=== PATIENT | female | born 1990 | race American Indian/Alaskan Native ===

== ENCOUNTER 2019-06-06 15:51 | Emergency (ER) | payer MEDICAID, OTHER ==
--- NOTE | 2019-06-06 16:08 | Event Note ---
ED Screening Note Date of service: 06/06/19 Time: 16:05 ED Screening Note: This is a 28 y.o. F. that presents to the ER with pelvic pain and vaginal discharge x 2 days. LMP 05/20/2019 This initial assessment/diagnostic orders/clinical plan/treatment(s) is/are subject to change based on patients health status, clinical progression and re- assessment by fellow clinical providers in the ED. Further treatment and workup at subsequent clinical providers discretion. Patient/guardian urged not to elope from the ED as their condition may be serious if not clinically assessed and managed. Initial orders include: UA, urine , wet prep, and GC Pelvic exam
[2019-06-06 17:27] LABS: Bacteria,Urine 1+ /HPF (Negative); Bilirubin,Urine NEG (Negative); Blood,Urine SM (Negative); Color,Urine Amber (Yellow); Mucus,Urine 3+ /HPF; Sperm,Urine FEW /HPF (NP)
[2019-06-06 17:30] LABS: HCG Qualitative,Urine Negative (Negative)
--- NOTE | 2019-06-06 17:55 | Emergency Department Report ---
ED Dysuria HPI - HPI Chief Complaint: Abdominal Pain Stated Complaint: ABD PAIN/DISCHARGE Time Seen by Provider: 06/06/19 16:04 Duration: 2 Days Location of Discomfort: Suprapubic Severity: Mild Symptoms: Dysuria: Yes, Frequency: Yes, Suprapubic Pain: No, Flank Pain: No, Fever: No, Hematuria: No, Abdominal Pain: No, Previous UTI's: Yes ED Review of Systems ROS: Stated complaint: ABD PAIN/DISCHARGE Other details as noted in HPI Comment: All other systems reviewed and negative ED Past Medical Hx - Past Medical History Previous Medical History?: No Hx Hypertension: No Hx Diabetes: No Hx Deep Vein Thrombosis: No Hx Renal Disease: No Hx Sickle Cell Disease: No Hx Seizures: No Hx Asthma: No Hx HIV: No - Surgical History Past Surgical History?: Yes Additional Surgical History: X 1 - Family History Family history: no significant - Social History Smoking Status: Never Smoker Substance Use Type: None - Medications Home Medications: Home Medications Medication Instructions Recorded Confirmed Last Taken Type Sulfamethoxazole/Trimethoprim 1 each PO BID #10 tablet 06/06/19 Unknown Rx [Bactrim DS TAB] Dysuria Exam - Exam General: Vital signs noted. No distress. Alert and acting appropriately. Exam: Yes Moist Mucous Membranes, No CVA Tenderness, No Abdominal Tenderness, No Rigidity or Guarding Labs: Lab Results 06/06/19 Range/Units 16:56 Urine Color Monie (Yellow) Urine Turbidity Slightly-cloudy (Clear) Urine pH 5.0 (5.0-7.0) Ur Specific [place] 1.031 H (1.003-1.030) Urine Protein 30 mg/dl (Negative) mg/dL Urine Glucose (UA) Neg (Negative) mg/dL Urine Ketones 20 (Negative) mg/dL Urine Blood Sm (Negative) Urine Nitrite Neg (Negative) Urine Bilirubin Neg (Negative) Urine Urobilinogen 4.0 (<2.0) mg/dL Ur Leukocyte Esterase Mod (Negative) Urine WBC (Auto) 4.0 (0.0-6.0) /HPF Urine RBC (Auto) 9.0 (0.0-6.0) /HPF U Epithel Cells (Auto) 13.0 (0-13.0) /HPF Urine Bacteria (Auto) 1+ (Negative) /HPF Urine Mucus 3+ /HPF Urine Yeast (Budding) Few /HPF Urine Sperm Few ([employer]) /HPF Urine HCG, Qual Negative (Negative) ED Course Vital Signs 06/06/19 16:05 Temperature 98.0 F Pulse Rate 95 H Respiratory 16 Rate Blood Pressure 147/83 O2 Sat by Pulse 100 Oximetry ED Medical Decision Making - Medical Decision Making Labs 06/06/19 16:56 Urine Color Monie Urine Turbidity Slightly-cloudy Urine pH 5.0 Ur Specific [place] 1.031 H Urine Protein 30 mg/dl Urine Glucose (UA) Neg Urine Ketones 20 Urine Blood Sm Urine Nitrite Neg Urine Bilirubin Neg Urine Urobilinogen 4.0 Ur Leukocyte Esterase Mod Urine WBC (Auto) 4.0 Urine RBC (Auto) 9.0 U Epithel Cells (Auto) 13.0 Urine Bacteria (Auto) 1+ Urine Mucus 3+ Urine Yeast (Budding) Few Urine Sperm Few Urine HCG, Qual Negative Vital Signs 06/06/19 16:05 Temperature 98.0 F Pulse Rate 95 H Respiratory 16 Rate Blood Pressure 147/83 O2 Sat by Pulse 100 Oximetry Critical care attestation.: If time is entered above; I have spent that time in minutes in the direct care of this critically ill patient, excluding procedure time. ED Disposition Clinical Impression: UTI (urinary tract infection) Disposition: DC-01 TO HOME OR SELFCARE Is pt being admited?: No Does the pt Need Aspirin: No Condition: Stable Instructions: Urinary Tract Infection in Women (ED) Additional Instructions: URINATE AFTER SEX MED ORDERED FOLLOW UP WITH PCP NEXT WEEK TO BE SURE YOU ARE GETTING BETTER HYDRATE WELL WITH WATER Referrals: LOLLY GAMEZ MD [Staff Physician] - 3-5 Days Time of Disposition: 18:10
[2019-06-06] MEDS ORDERED: NACL 0.9% 1000 ML 1,000 ML IV ONE (18:04)
[2019-06-06] MEDS ORDERED: ROCEPHIN/NS 1 GM/50 ML 1 GM/50 ML BAG IV ONE (18:04)
[2019-06-06 19:24] VITALS: BP 133/74
== END 2019-06-06 19:45 | disposition home or self-care (01) ==
LOC: ED 15:51
DX: N39.0 Urinary tract infection, site not specified (principal); Z88.6 Allergy status to analgesic agent; Z88.1 Allergy status to other antibiotic agents
CPT/HCPCS: 81001; 81025; 96365; 99284; J0696; J7030

== ENCOUNTER 2019-09-11 09:50 | Emergency (ER) | payer MEDICAID ==
[2019-09-11 09:58] VITALS: BP 144/89
--- NOTE | 2019-09-11 11:18 | Emergency Department Report ---
ED ENT HPI - General Chief complaint: Upper Respiratory Infection Stated complaint: FLU LIKE SYM/RT SIDE TOOTHACHE Time Seen by Provider: 09/11/19 10:55 Source: patient Mode of arrival: Ambulatory Limitations: No Limitations - History of Present Illness Initial comments: 28-year-old -[place]ub[place] female patient complains of cough, congestion, and body aches for 2 days and sore throat yesterday. She rates her sore throat as a 10/10 in severity. She admits to green mucus with cough. She states she feels diagnosis and admits to exposure to the flu at work. She denies any chest pain or shortness of breath. Patient also complains of mild right lower dental pain for the past few days. She states she has been getting intermittent wisdom tooth pain in the area for months. Denies any swelling of the face Worsens with: swallowing Associated Symptoms: cough, pain with swallowing, sore throat - Related Data Previous Rx's Medication Instructions Recorded Last Taken Type Sulfamethoxazole/Trimethoprim 1 each PO BID #10 tablet 06/06/19 Unknown Rx [Bactrim DS TAB] Benzonatate 200 mg PO TID PRN #30 capsule 09/11/19 Unknown Rx Ibuprofen [Motrin 800 MG tab] 800 mg PO Q8HR PRN #21 tablet 09/11/19 Unknown Rx Allergies Allergy/AdvReac Type Severity Reaction Status Date / Time acetaminophen [From Percocet] Allergy Hives Verified 07/03/13 19:41 oxycodone HCl [From Percocet] Allergy Hives Verified 07/03/13 19:41 ED Dental HPI - General Chief complaint: Upper Respiratory Infection Stated complaint: FLU LIKE SYM/RT SIDE TOOTHACHE Time Seen by Provider: 09/11/19 10:55 Source: patient Mode of arrival: Ambulatory Limitations: No Limitations - Related Data Previous Rx's Medication Instructions Recorded Last Taken Type Sulfamethoxazole/Trimethoprim 1 each PO BID #10 tablet 06/06/19 Unknown Rx [Bactrim DS TAB] Benzonatate 200 mg PO TID PRN #30 capsule 09/11/19 Unknown Rx Ibuprofen [Motrin 800 MG tab] 800 mg PO Q8HR PRN #21 tablet 09/11/19 Unknown Rx Allergies Allergy/AdvReac Type Severity Reaction Status Date / Time acetaminophen [From Percocet] Allergy Hives Verified 07/03/13 19:41 oxycodone HCl [From Percocet] Allergy Hives Verified 07/03/13 19:41 ED Review of Systems ROS: Stated complaint: FLU LIKE SYM/RT SIDE TOOTHACHE Other details as noted in HPI Comment: All other systems reviewed and negative Constitutional: chills, malaise, weakness Respiratory: cough. denies: shortness of breath Cardiovascular: denies: chest pain Gastrointestinal: nausea. denies: abdominal pain, vomiting, diarrhea, constipation ED Past Medical Hx - Past Medical History Hx Hypertension: No Hx Diabetes: No Hx Deep Vein Thrombosis: No Hx Renal Disease: No Hx Sickle Cell Disease: No Hx Seizures: No Hx Asthma: No Hx HIV: No - Surgical History Additional Surgical History: X 1 - Social History Smoking Status: Never Smoker Substance Use Type: None - Medications Home Medications: Home Medications Medication Instructions Recorded Confirmed Last Taken Type Sulfamethoxazole/Trimethoprim 1 each PO BID #10 tablet 06/06/19 Unknown Rx [Bactrim DS TAB] Benzonatate 200 mg PO TID PRN #30 capsule 09/11/19 Unknown Rx Ibuprofen [Motrin 800 MG tab] 800 mg PO Q8HR PRN #21 tablet 09/11/19 Unknown Rx ED Physical Exam - General Limitations: No Limitations General appearance: alert, in no apparent distress - Head Head exam: Present: atraumatic, normocephalic - Eye Eye exam: Present: normal appearance - Expanded ENT Exam Expanded Mouth exam: Absent: drooling, trismus, muffled voice Teeth exam: Present: normal inspection Throat exam: Positive: tonsillar erythema (moderate). Negative: tonsillomegaly, tonsillar exudate, R peritonsillar mass, L peritonsillar mass - Neck Neck exam: Present: tenderness, lymphadenopathy (mild anterior) - Respiratory Respiratory exam: Present: normal lung sounds bilaterally. Absent: respiratory distress - Cardiovascular Cardiovascular Exam: Present: regular rate, normal rhythm - GI/Abdominal GI/Abdominal exam: Present: soft. Absent: distended, tenderness - Neurological Exam Neurological exam: Present: alert, oriented X3 - Psychiatric Psychiatric exam: Present: normal affect, normal mood - Skin Skin exam: Present: warm, dry, intact, normal color. Absent: rash ED Course Vital Signs 09/11/19 09/11/19 09:55 11:48 Temperature 97.6 F 98.1 F Pulse Rate 92 H Respiratory 20 Rate Blood Pressure 144/89 O2 Sat by Pulse 97 Oximetry ED Medical Decision Making - Lab Data Lab Results 09/11/19 Range/Units Unknown Influenza A (Rapid) Negative (Negative) Influenza B (Rapid) Negative (Negative) Group A Strep Rapid Negative (Negative) - Medical Decision Making 28-year-old -[place]ub[place] female patient complains of cough, congestion, and body aches for 2 days and sore throat yesterday. No tonsillar swelling or exudate noted on exam. Lungs are clear to auscultation bilaterally. Vitals are normal. Rapid flu and strep test are negative. Patient is stable for discharge home with treatment for viral syndrome. Recommend follow-up with PCP in 3-5 days. Discussed very strict return precautions in detail with patient who verbalizes understanding. Critical care attestation.: If time is entered above; I have spent that time in minutes in the direct care of this critically ill patient, excluding procedure time. ED Disposition Clinical Impression: Viral syndrome Disposition: DC-01 TO HOME OR SELFCARE Is pt being admited?: No Condition: Stable Instructions: Viral Syndrome (ED) Prescriptions: Benzonatate 200 mg PO TID PRN #30 capsule PRN Reason: Cough Ibuprofen [Motrin 800 MG tab] 800 mg PO Q8HR PRN #21 tablet PRN Reason: pain/fever Referrals: PRIMARY CARE, [Primary Care Provider] - 3-5 Days Forms: Work/School Release Form(ED)
== END 2019-09-11 13:03 | disposition home or self-care (01) ==
LOC: ED 09:50
DX: B34.9 Viral infection, unspecified (principal); Z79.899 Other long term (current) drug therapy; Z88.5 Allergy status to narcotic agent
CPT/HCPCS: 87116; 87400; 87430

== ENCOUNTER 2021-08-10 20:18 | Emergency (ER) | payer MEDICAID ==
[2021-08-10 21:58] LABS: HCG Qualitative,Urine Negative (Negative)
--- NOTE | 2021-08-10 22:47 | XRay Report ---
CHEST 2 VIEWS INDICATION: cough and congestion. COMPARISON: None. FINDINGS: Support devices: None. Heart: Within normal limits. Lungs/Pleura: No acute air space or interstitial disease. No significant pleural effusion. IMPRESSION: No acute findings. Signer Name: Joselo Arcos MD Signed: 08/10/2021 10:42 PM Workstation Name: [id number]
[2021-08-10] MEDS ORDERED: dexAMETHasone 20 MG/5 ML VIAL IM ONE (22:57)
[2021-08-10] MEDS ORDERED: ONDANSETRON 4 MG ODT TAB PO STA (23:16)
[2021-08-10 23:25] VITALS: BP 153/107
--- NOTE | 2021-08-11 01:16 | Emergency Department Report ---
ED General Adult HPI - General Chief complaint: Upper Respiratory Infection Stated complaint: COVID SYMPTOMS Time Seen by Provider: 08/10/21 20:54 Source: patient Mode of arrival: Ambulatory Limitations: No Limitations - History of Present Illness Initial comments: 30-year-old [place] female with no significant past medical history but was recently diagnosed with coronavirus about 7 days ago presents emerged department complaining of having episodes of vomiting and diarrhea next the stomach and infrequent cough but reports no hemoptysis hematemesis hematochezia, no hematuria no dysuria no chest pain or palpitations. Occasional fevers sensation and and chills presents emerge department to seek further evaluation and treatment based on her's her symptoms and is worried about disease progression. Severity scale (0 -10): 0 Consistency: constant Improves with: none Worsens with: none Associated Symptoms: denies other symptoms Treatments Prior to Arrival: none - Related Data Previous Rx's Medication Instructions Recorded Last Taken Type Sulfamethoxazole/Trimethoprim 1 each PO BID #10 tablet 06/06/19 Unknown Rx [Bactrim DS TAB] Benzonatate 200 mg PO TID PRN #30 capsule 09/11/19 Unknown Rx Ibuprofen [Motrin 800 MG tab] 800 mg PO Q8HR PRN #21 tablet 09/11/19 Unknown Rx Hyoscyamine Subl [Levsin Sl 0.125 0.125 mg SL Q6HR PRN #20 tab 08/10/21 Unknown Rx TAB] Ondansetron [Zofran ODT TAB] 8 mg PO Q12HR #14 tab.rapdis 08/10/21 Unknown Rx Allergies Allergy/AdvReac Type Severity Reaction Status Date / Time acetaminophen [From Percocet] Allergy Hives Verified 07/03/13 19:41 oxycodone HCl [From Percocet] Allergy Hives Verified 07/03/13 19:41 ED Review of Systems ROS: Stated complaint: COVID SYMPTOMS Other details as noted in HPI Comment: All other systems reviewed and negative ED Past Medical Hx - Past Medical History Previous Medical History?: No Hx Hypertension: No Hx Diabetes: No Hx Deep Vein Thrombosis: No Hx Renal Disease: No Hx Sickle Cell Disease: No Hx Seizures: No Hx Asthma: No Hx HIV: No - Surgical History Past Surgical History?: No Additional Surgical History: X 1 - Social History Smoking Status: Never Smoker Substance Use Type: None - Medications Home Medications: Home Medications Medication Instructions Recorded Confirmed Last Taken Type Sulfamethoxazole/Trimethoprim 1 each PO BID #10 tablet 06/06/19 Unknown Rx [Bactrim DS TAB] Benzonatate 200 mg PO TID PRN #30 capsule 09/11/19 Unknown Rx Ibuprofen [Motrin 800 MG tab] 800 mg PO Q8HR PRN #21 tablet 09/11/19 Unknown Rx Hyoscyamine Subl [Levsin Sl 0.125 0.125 mg SL Q6HR PRN #20 tab 08/10/21 Unknown Rx TAB] Ondansetron [Zofran ODT TAB] 8 mg PO Q12HR #14 tab.rapdis 08/10/21 Unknown Rx ED Physical Exam - General Limitations: No Limitations General appearance: alert, in no apparent distress - Head Head exam: Present: atraumatic, normocephalic - Eye Eye exam: Present: normal appearance - ENT ENT exam: Present: mucous membranes moist - Neck Neck exam: Present: normal inspection - Respiratory Respiratory exam: Present: normal lung sounds bilaterally, rhonchi (Scattered ). Absent: respiratory distress - Cardiovascular Cardiovascular Exam: Present: regular rate, normal rhythm. Absent: systolic murmur, diastolic murmur, rubs, gallop - GI/Abdominal GI/Abdominal exam: Present: soft, normal bowel sounds. Absent: tenderness, guarding, rebound, hypoactive bowel sounds - Extremities Exam Extremities exam: Present: normal inspection - Back Exam Back exam: Present: normal inspection. Absent: CVA tenderness (R), CVA tenderness (L), muscle spasm, paraspinal tenderness - Neurological Exam Neurological exam: Present: alert, oriented X3, CN II-XII intact, normal gait - Psychiatric Psychiatric exam: Present: normal affect, normal mood - Skin Skin exam: Present: warm, dry, intact, normal color. Absent: rash ED Course Vital Signs 08/10/21 08/10/21 20:22 23:21 Temperature 99.3 F Pulse Rate 85 95 H Respiratory 18 18 Rate Blood Pressure 142/102 Blood Pressure 153/107 [Right] O2 Sat by Pulse 99 98 Oximetry ED Medical Decision Making - Radiology Data Radiology results: report reviewed [facility] [address] [place] [address] XRay Report Signed Patient: KRISTIE GARCIA MR#: [id number] : 1990 Acct:[id number] Age/Sex: 30 / F ADM Date: 08/10/21 Loc: ED Attending Dr: Ordering Physician: HIMA LOMBARDO Date of Service: 08/10/21 Procedure(s): XR chest routine 2V Accession Number(s): [id number] cc: HIMA LOMBARDO Fluoro Time In Minutes: CHEST 2 VIEWS INDICATION: cough and congestion. COMPARISON: None. FINDINGS: Support devices: None. Heart: Within normal limits. Lungs/Pleura: No acute air space or interstitial disease. No significant pleural effusion. IMPRESSION: No acute findings. Signer Name: Joselo Arcos MD Signed: 08/10/2021 10:42 PM Workstation Name: [id number] Transcribed By: ES Dictated By: Joselo Arcos MD Electronically Authenticated By: Joselo Arcos MD Signed Date/Time: 08/10/212241 DD/ 40 TD/TT: Print Cancel - Medical Decision Making Problem 1 cough This patient presents with acute cough, most consistent with URI. Differential diagnosis includes asthma, bronchitis, hyperreactive airway disease. Presentation not consistent with acute bacterial pneumonia, influenza, asthma, transient airway hyperresponsiveness. Presentation not consistent with chronic causes of cough (including GERD, asthma, postnasal discharge, medication side effect, CHF, lung cancer or mass). Plan: Normal CXR, supportive care, reassess Problem 2 vomiting diarrhea Patient presents to the emergency department with nausea, vomiting, diarrhea, differential diagnosis includes possible acute gastroenteritis. Abdominal examination without peritoneal signs. Currently patient is euvolemic without evidence of dehydration. No evidence of surgical abdomen or other acute medical emergency including bowel obstruction, viscus perforation, vascular catastrophe, appendicitis, cholecystitis at this time. Presentation not consistent with other acute emergent causes of vomiting and diarrhea at this time. No indication for abdominal imaging Plan supportive care, oral/IV rehydration, antiemetics and reassess Critical care attestation.: If time is entered above; I have spent that time in minutes in the direct care of this critically ill patient, excluding procedure time. ED Disposition Clinical Impression: Nausea and vomiting in adult, Vomiting and diarrhea Disposition: HOME / SELF CARE / HOMELESS Is pt being admited?: No Does the pt Need Aspirin: No Condition: Stable Instructions: Diarrhea, Adult, COVID-19, Nausea and Vomiting, Adult, [id number], COVID-19, Hand Washing Prescriptions: Hyoscyamine Subl [Levsin Sl 0.125 TAB] 0.125 mg SL Q6HR PRN #20 tab PRN Reason: abdominal cramps and spasms Ondansetron [Zofran ODT TAB] 8 mg PO Q12HR #14 tab.[email or web address] Referrals: [facility] [Provider Group] - 3-5 Days PRIMARY CARE,MD [Primary Care Provider] - 3-5 Days
== END 2021-08-10 23:26 | disposition home or self-care (01) ==
LOC: ED 20:18
DX: R11.2 Nausea with vomiting, unspecified (principal); R19.7 Diarrhea, unspecified; Z98.890 Other specified postprocedural states; Z88.6 Allergy status to analgesic agent; Z88.5 Allergy status to narcotic agent
CPT/HCPCS: 71046; 81025; 96372; 99283; J1100; J3490; Q0162